=== PATIENT | female | born 1980 | race Caucasian/White ===

== ENCOUNTER → 2017-12-03 | Outpatient (CLI) | payer OTHER ==
[~2017-12-03] MED LIST: ALBU90OI61 INH; AMOCLA875 PO; ASPI81CH PO; Amoxicillin500 MG PO; BUPR100; CLON.5 PO; CODGUAEL PO; CYCL10 PO; DIPH50 PO; FLUT.05NI; HYDACE5325 PO; IBUP600 PO; LEVSOD50 PO; LITH300C PO; MELO7.5 PO; METPRE4DP PO; NAPR500 PO; NAPR500EC PO; PRED20 PO; QUET100 PO; TOPI50 PO; TRAZ150T57; ZIPR60 PO
== END ==
LOC: LAB 08:00 → LAB SHORT 08:00
DX: R10.9 Unspecified abdominal pain (principal)
CPT/HCPCS: 87338

== ENCOUNTER 2018-07-16 16:33 | Emergency (ER) | payer OTHER ==
[~2018-07-16] VITALS: Ht 167.6 cm; Wt 69.0 kg
[~2018-07-16 16:33] MED LIST changes: -ASPI81CH PO; -Amoxicillin500 MG PO; -BUPR100; -IBUP600 PO; -MELO7.5 PO; -METPRE4DP PO; -PRED20 PO; -TRAZ150T57; -ZIPR60 PO
[2018-07-16] MEDS ORDERED: ASPI81CH PO (16:47)
[2018-07-16] MEDS ORDERED: MELO7.5 PO (16:47)
[2018-07-16] MEDS ORDERED: IBUP600 PO (19:01)
[2018-07-16] MEDS ORDERED: METPRE4DP PO (19:03)
== END 2018-07-16 19:11 | disposition home or self-care (01) ==
LOC: ER 16:33
DX: J45.909 Unspecified asthma, uncomplicated (principal); Z88.8 Allergy status to other drugs, medicaments and biological substances; Z79.899 Other long term (current) drug therapy; Z79.82 Long term (current) use of aspirin; Z87.891 Personal history of nicotine dependence
CPT/HCPCS: 93971; 99283-25

== ENCOUNTER → 2018-08-13 | Outpatient (CLI) | payer OTHER ==
[~2018-08-13] MED LIST changes: +ASPI81CH PO; +IBUP600 PO; +MELO7.5 PO; +METPRE4DP PO
[2018-08-17 14:10] LABS: HPV 16 Negative (Negative); HPV 18 Negative (Negative); HPV OTHER HR TYPES Negative (Negative)
[2018-08-18 05:52] LABS: CHLAMYDIA TRACHOMATIS, NAA Negative (Negative); NEISSERIA GONORRHOEAE, NAA Negative (Negative)
== END | disposition home or self-care (01) ==
LOC: LAB SHORT 15:56 → LAB 15:56
PROVIDERS: Family Medicine
DX: Z01.419 Encounter for gynecological examination (general) (routine) without abnormal findings (principal); N94.12 Deep dyspareunia
CPT/HCPCS: 87491; 87591; 87624; G0145